=== PATIENT | male | born 1940 ===

== ENCOUNTER 2017-07-23 07:26 | Day surgery (SDC) | payer MEDICARE, OTHER ==
--- NOTE | 2017-07-15 11:23 | Pre-Procedure Note/Attestation ---
Pre-Procedure Note/Attestation Complete Prior to Procedure Planned Procedure: right Procedure Narrative: 1. CATARACT EXTRACTION WITH PHACO AND PC IOL IMPLANTATION, RIGHT EYE. 2.MALYUGIN RING INSERTION, RIGHT EYE FOR FLOPPY IRIS SYNDROME. 3.COMPLEX CATARACT , RIGHT EYE Indications for Procedure Pre-Operative Diagnosis: 1. CATARACT ,RIGHT EYE. 2. FLOPPY IRIS SYNDROME,RIGHT EYE 3. COMPLEX CATARACT , RIGHT EYE. Attestation I attest that I discussed the nature of the procedure; its benefits; risks and complications; and alternatives (and the risks and benefits of such alternatives ), prior to the procedure, with the patient (or the patient's legal client account representative). I attest that, if there was a reasonable possibility of needing a blood transfusion, the patient (or the patient's legal client account representative) was given the [facility] standardized written summary, pursuant to the Nicholas [place] Blood Safety Act ([place] Health and Safety Code # 1645, as amended). I attest that I re-evaluated the patient just prior to the surgery and that there has been no change in the patient's H&P, except as documented below: CORNELIO ANDRES Jul 15, 2017 11:23
[2017-07-23] VITALS (8 sets, daily range): BP systolic 137–159; BP diastolic 58–73
[~2017-07-23] VITALS: Ht 180 cm; Wt 63.5 kg
[~2017-07-23 07:26] MED LIST: Akten 3.5% 1ml Btl ONE; Akten 3.5% 1ml Btl RIGHT EYE SCH; BSS 15ml BTL ONE; BSS 500ml btl ONE; Carbachol 0.01% Op Soln 1.5ml vial ONE; Dexamethasone 4mg/ml vial ONE; Diclofenac Sod 0.1% Op Soln ONE; Diclofenac Sod 0.1% Op Soln RIGHT EYE SCH; EPINEPHrine 1mg/1ml Amp ONE; Lidocaine 1% MPF 10mg/ml 5ml ONE; Phenylephrine 10% Opth Soln 5ml ONE; Phenylephrine 10% Opth Soln 5ml RIGHT EYE SCH; Povidone-Iodine 5% opth solution ONE; Sodium Hyaluronate 10 mg/ml 0.85ml ONE; Tropicamide 1% Opth Soln ONE; Tropicamide 1% Opth Soln RIGHT EYE SCH; Vigamox Opth Soln ONE; Vigamox Opth Soln RIGHT EYE SCH; acetaZOLAMIDE 125mg tab ORAL ONE
[2017-07-23] MEDS ORDERED: FINASTERIDE5 MG ORAL (07:29)
[2017-07-23] MEDS ORDERED: TAMSULOSIN HCL0.4 MG ORAL (07:30)
[2017-07-23] MEDS ORDERED: METFORMIN HCL500 M5 PO (07:30)
[2017-07-23] MEDS ORDERED: Akten 3.5% 1ml Btl ONE (07:31)
[2017-07-23] MEDS ORDERED: Tropicamide 1% Opth Soln ONE (07:31)
[2017-07-23] MEDS ORDERED: Diclofenac Sod 0.1% Op Soln ONE (07:31)
[2017-07-23] MEDS ORDERED: Phenylephrine 10% Opth Soln 5ml ONE (07:31)
[2017-07-23] MEDS ORDERED: Vigamox Opth Soln ONE (07:31)
[2017-07-23] MEDS: Tropicamide 1% Opth Soln RIGHT EYE SCH ×3 (07:56→08:07)
[2017-07-23] MEDS: Vigamox Opth Soln RIGHT EYE SCH ×3 (07:56→08:07)
[2017-07-23] MEDS: Diclofenac Sod 0.1% Op Soln RIGHT EYE SCH ×3 (07:56→08:08)
[2017-07-23] MEDS: Akten 3.5% 1ml Btl RIGHT EYE SCH ×3 (07:57→08:08)
[2017-07-23] MEDS: Phenylephrine 10% Opth Soln 5ml RIGHT EYE SCH ×3 (07:57→08:07)
[2017-07-23] MEDS ORDERED: LR 1000ml ONE (08:00)
[2017-07-23] MEDS ORDERED: Midazolam 2mg/2ml Inj ONE (08:00)
[2017-07-23] MEDS ORDERED: Sterile Water Irrig 1000ml IRRIG ONE (08:00)
[2017-07-23] MEDS ORDERED: NS Irrig 1000ml ONE (08:00)
[2017-07-23] MEDS ORDERED: LR 1000ml 1,000 ML IVLG SCH (08:40)
[2017-07-23] MEDS ORDERED: LR 1000ml 1,000 ML IV SCH (08:45)
[2017-07-23] MEDS ORDERED: fentaNYL 100 mcg/2 mL IV PRN (08:45)
--- NOTE | 2017-07-23 08:45 | Anethesia Preoperative Eval ---
Anesthesia Pre-op PMH/ROS General Date of Evaluation: Jul 23, 2017 Time of Evaluation: 08:11 Anesthesiologist: Sridhar ASA Score: ASA 3 Mallampati Score Class I : Soft palate, uvula, fauces, pillars visible Class II: Soft palate, uvula, fauces visible Class III: Soft palate, base of uvula visible Class IV: Only hard plate visible Mallampati Classification: Class II Surgeon: Jaret Diagnosis: Cataract right eye Surgical Procedure: Extraction of cataract with IOL right eye Family History: no anesthesia problems Allergies: Coded Allergies: No Known Allergies (Unverified , 07/12/17) Medications: see eMAR Past Medical History Cardiovascular: Denies: HTN, CAD, [place], valve dz, arrhythmia, other Pulmonary: Denies: asthma, COPD, DOV, other Gastrointestinal/Genitourinary: Reports: other - BPH, Denies: GERD, CRI, ESRD Neurologic/Psychiatric: Denies: dementia, CVA, depression/anxiety, TIA, other Endocrine: Reports: DM, Denies: hypothyroidism, steroids, other HEENT: Reports: cataract (R), Denies: cataract (L), glaucoma, [place] (L), [place] (R), other Hematology/Immune: Denies: anemia, DVT, bleeding disorder, other Musculoskeletal/Integumentary: Denies: OA, RA, DJD, DDD, edema, other PMH Narrative: DM, BPH PSxH Narrative: Retina surgery left eye Anesthesia Pre-op Phys. Exam Physician Exam Last Vital Signs Date Time Temp Pulse Resp B/P (MAP) Pulse Ox O2 Delivery O2 Flow Rate FiO2 07/23/17 08:11 97.2 52 19 138/58 99 Room Air Constitutional: NAD Neurologic: CN 2-12 intact Cardiovascular: RRR, no M/R/G Respiratory: CTA Gastrointestinal: S/NT/ND Airway Exam Mallampati Score: Class II MO: full ROM: full Dentures: upper, lower Anesthesia Pre-op A/P Risk Assessment & Plan Assessment: Diabetic male for cataract extraction Plan: MAC Status Change Before Surgery: No Pre-Antibiotics Drug: None PREET DAWN M.D. Jul 23, 2017 08:45
--- NOTE | 2017-07-23 08:46 | Immediate Post-Op Evaluation ---
Immediate Post-Op Evalulation Immediate Post-Op Evalulation Procedure: Extraction of cataract with IOL right eye Date of Evaluation: Jul 23, 2017 Time of Evaluation: 09:15 IV Fluids: 400 Blood Pressure Systolic: 153 Blood Pressure Diastolic: 57 Pulse Rate: 57 Respiratory Rate: 16 O2 Sat by Pulse Oximetry: 99 Temperature (Fahrenheit): 97.1 Pain Score (1-10): 0 Nausea: No Vomiting: No Complications No complication Patient Status: awake, patent, none Hydration Status: adequate Drug: None PREET DAWN M.D. Jul 23, 2017 08:46
--- NOTE | 2017-07-23 09:13 | Discharge Summary ---
Discharge Summary Discharge Summary Discharge Summary DATE OF ADMISSION: 07/23/2017 DATE OF DISCHARGE: 07/23/2017 REASON FOR HOSPITALIZATION:1- Complex cataract,right eye. 2- floppy iris syndrome, coplex cataract, rigt eye. SURGERY PERFORMED: 1- Cataract extraction with phaco and PC IOL implantation, right eye. 2- Malyugin ring insertion for the floppy iris syndrome treatment, right eye CONDITION IN THE HOSPITAL:The patient tolerated the surgery without complications. DISCHARGE CONDITION: The patient was stable at discharge. DISCHARGE MEDICATIONS: 1. Vigamox eye drops one drop q.i.d, right eye. 2. Prednisolone one drop q.i.d, right eye 3. Acular one drop q4h, right eye POSTOPERATIVE ORDERS: The patient has to rest at home. No bending, No lifting, No watching Television tonight. POSTOPERATIVE FOLLOW UP: The patient will be followed in my office tomorrow morning at 7 o'clock. CORNELIO ANDRES Jul 23, 2017 09:13
--- NOTE | 2017-07-23 09:13 | 48 Hour Post Anesthesia Eval ---
Post Anesthesia Evaluation Procedure: Extraction of cataract with IOL right eye Date of Evaluation: Jul 23, 2017 Time of Evaluation: 09:45 Blood Pressure Systolic: 153 0: 58 Pulse Rate: 56 Respiratory Rate: 18 O2 Sat by Pulse Oximetry: 98 Airway: patent Nausea: No Vomiting: No Pain Intensity: 0 Cardiopulmonary Status: Stable Mental Status/LOC: patient returned to baseline Follow-up Care/Observations: As per surgery Post-Anesthesia Complications: No anesthetic complication Follow-up care needed: N/A PREET DAWN M.D. Jul 23, 2017 09:13
--- NOTE | 2017-07-23 09:17 | Brief Operative Note ---
Immediate Post Operative Note Operative Note Chief Complaint: Blurry vision, difficulty driving and readin, right eye Pre-op Diagnosis: 1. CATARACT ,RIGHT EYE. 2. FLOPPY IRIS SYNDROME,RIGHT EYE 3. COMPLEX CATARACT , RIGHT EYE. Procedure: 1- Cataract extraction with phaco and PC IOL implantation. right eye. 2- Malyugin ring insertion for the treatment floppy iris syndrome and the complex cataract, right eye Post-op Diagnosis: same as pre-op Surgeon: Cornelio Raygoza MD Improvement Spec: None Additional Surgeons: None Anesthesiologist: Dr. Rey Anesthesia: MAC Specimen: none Complications: none Condition: stable Fluids: LR 500ml Estimated Blood Loss: none Drains: none Packing: none Implant(s) used?: Yes - Monofocal PC IOL implanted in the right eye without complications, right eye CORNELIO RAYGOZA Jul 23, 2017 09:17
[2017-07-23] MEDS ORDERED: Dexamethasone 4mg/ml vial ONE (12:32)
[2017-07-23] MEDS ORDERED: Lidocaine 1% MPF 10mg/ml 5ml ONE (12:32)
[2017-07-23] MEDS ORDERED: BSS 500ml btl ONE (12:32)
[2017-07-23] MEDS ORDERED: BSS 15ml BTL ONE (12:33)
[2017-07-23] MEDS ORDERED: EPINEPHrine 1mg/1ml Amp ONE (12:33)
[2017-07-23] MEDS ORDERED: Sodium Hyaluronate 10 mg/ml 0.85ml ONE (12:33)
[2017-07-23] MEDS ORDERED: Povidone-Iodine 5% opth solution ONE (12:33)
--- NOTE | 2017-07-24 09:16 | Operative Note - Dictated ---
DATE OF OPERATION: 07/23/2017 FACILITY: [facility]. SURGEON: Aditya Raygoza M.D. THREADER: None. ANESTHESIOLOGIST: Nicholas Waller M.D. ANESTHESIA: Monitored anesthesia care (MAC) x2. PREOPERATIVE DIAGNOSES: 1. Cataract, right eye. 2. Floppy iris syndrome. 3. Complex cataract. POSTOPERATIVE DIAGNOSES: 1. Cataract, right eye. 2. Floppy iris syndrome. 3. Complex cataract. SURGERY PERFORMED: 1. Cataract extraction with phacoemulsification and posterior chamber intraocular lens implantation in the right eye. 2. Insertion of Malyugin ring for treatment of floppy iris syndrome. INDICATION FOR SURGERY: The patient is a 77-year-old gentleman with history of hypertension, benign prostatic hypertrophy, and diabetes mellitus. He is taking medications including Macrobid, Flomax, and finasteride. He does not have any allergy to medications, but he is a heavy cigarette smoker. The patient is complaining of blurred vision in the right eye. On examination of the right eye, the cornea is clear. Anterior chamber is clean and quiet. Pupillary reflex is normal. The patient has a floppy iris syndrome because he is using lens. There is no RAPD. There is 4+ nuclear sclerosis and 2+ cortical cataract in his eye. Funduscopy shows normal macula, normal optic disc, and periphery retina is flat. To improve his vision in the right eye, the cataract has to be removed and posterior chamber intraocular lens has to be implanted. INFORMED CONSENT: The nature of the surgery, risks, benefits, alternatives, and potential complications were explained all in detail to the patient. The potential complications including, but not limited to bleeding, infection, posterior capsular rupture, lens subluxation, flat anterior chamber, iris prolapse, uveitis, corneal edema, macular edema, endophthalmitis, retinal detachment, loss of vision, and even loss of the eye were all explained in detail to the patient. The patient voiced understanding and accepted all the complications. The alternatives including accommodating lenses, multifocal lenses, toric lens, and conventional cataract surgery with limbal relaxing incision (LRI) for treatment of astigmatism were all explained in detail to the patient. The patient voiced understanding. The patient elected to have only conventional cataract surgery in the right eye. Then, he signed the consent form, which is in the chart. DESCRIPTION OF SURGERY AND FINDINGS: Following that, the patient was taken to the operation room in a stable condition. Lidocaine gel, Akten 3.5% were applied to the conjunctiva of the right eye. IV sedation was given by the anesthesiologist, Dr. Waller. After adequate anesthesia and sedation had been achieved, the right eye was prepped and draped in a sterile fashion for intraocular surgery. Following that, a speculum was placed in the right eye. Following that, using a Super Sharp knife, a clear corneal side port was created. Following that, 1% lidocaine without preservative (MPF) was injected into the anterior chamber. Viscoelastic agent, Healon was injected into the anterior chamber. Following that, a clear corneal temporal keratotomy was performed using a 2.8 mm keratome. Following that, the viscoelastic agent was injected into the anterior chamber again. Following that, a Malyugin ring was inserted into the anterior chamber. Following that, the coil of the Malyugin ring was engaged with sphincter. A sudheer-shaped space was created for safe phacoemulsification. Following that, a Vision Blue was injected under the viscoelastic agent to stain the anterior capsule of the lens. Following that, a clear viscoelastic agent was injected into the anterior chamber again. Under the viscoelastic agent, an anterior capsulotomy was performed in the fashion of capsulorrhexis beautifully. Following that, all viscoelastic agent was removed from the anterior chamber. Following that, with balanced salt solution, hydrodissection and hydrodelineation was performed and the nucleus was freed. Following that, the clear viscoelastic agent was injected into the anterior chamber to protect endothelium of the cornea. Following that, using a phacoemulsification machine in the fashion of horizontal chop, the nucleus was removed in toto. Following that, the cortical material was removed from the capsular bag using irrigation aspiration unit. Following that, the capsular bag was polished. Following that, the capsular bag was filled with viscoelastic agent, Healon. Following that, a +21 diopter [id number] foldable PCIOL with serial number [id number] was inserted into the capsular bag. Using a Sinskey hook, the lens was manipulated within the proper position. Following that, the viscoelastic agent was removed from the anterior and posterior part of the lens. Following that, the anterior chamber was filled with balanced salt solution. Following that, the wound was hydrated with balanced salt solution and the wound was checked for leakage and there was no leakage. The patient tolerated the surgery without complications. At the end of the surgery, the eye was patched with a clear sterile fenestrated shield and Vigamox eye drops were applied to the conjunctivae of the right eye. Following that, the patient was transferred to the recovery room. In the recovery room, 125 mg Diamox was given by mouth stat. Postoperative orders and directions were given to the patient. The patient will be discharged home upon stabilization. The patient will be followed in my office tomorrow morning at 7 o'clock. Aditya Raygoza M.D. DR: Wendy JOB#: [id number] CC:
== END 2017-07-23 12:20 | disposition home or self-care (01) ==
LOC: SUR 07:26
DX: H25.11 Age-related nuclear cataract, right eye (principal); H25.011 Cortical age-related cataract, right eye; H21.81 Floppy iris syndrome; F17.210 Nicotine dependence, cigarettes, uncomplicated; N40.0 Benign prostatic hyperplasia without lower urinary tract symptoms; E11.9 Type 2 diabetes mellitus without complications; Z79.84 Long term (current) use of oral hypoglycemic drugs
CPT/HCPCS: 66982; 82962; J0171; J1100; J2250; J7120; V2632; 94003; 94150

== ENCOUNTER 2017-07-30 05:40 | Day surgery (SDC) | payer MEDICARE, OTHER ==
--- NOTE | 2017-07-25 14:03 | Pre-Procedure Note/Attestation ---
Pre-Procedure Note/Attestation Complete Prior to Procedure Planned Procedure: left Procedure Narrative: 1. CATARACT EXTRACTION WITH PHACO AND PC IOL IMPLANTATION, LEFT EYE. 2.MALYUGIN RING INSERTION, LEFT EYE FOR FLOPPY IRIS SYNDROME. 3.COMPLEX CATARACT , LEFT EYE Indications for Procedure Pre-Operative Diagnosis: 1. CATARACT ,LEFT EYE. 2. FLOPPY IRIS SYNDROME,LEFT EYE 3. COMPLEX CATARACT , LEFT EYE. Attestation I attest that I discussed the nature of the procedure; its benefits; risks and complications; and alternatives (and the risks and benefits of such alternatives ), prior to the procedure, with the patient (or the patient's legal renewals representative). I attest that, if there was a reasonable possibility of needing a blood transfusion, the patient (or the patient's legal renewals representative) was given the [facility] standardized written summary, pursuant to the [place] Blood Safety Act ([place] Health and Safety Code # 1645, as amended). I attest that I re-evaluated the patient just prior to the surgery and that there has been no change in the patient's H&P, except as documented below: CORNELIO ANDRES Jul 25, 2017 14:03
[~2017-07-30] VITALS: Ht 180 cm; Wt 63.5 kg
[2017-07-30] VITALS (9 sets, daily range): BP systolic 135–154; BP diastolic 57–73
[~2017-07-30 05:40] MED LIST changes: -Akten 3.5% 1ml Btl ONE; -Akten 3.5% 1ml Btl RIGHT EYE SCH; -BSS 15ml BTL ONE; -BSS 500ml btl ONE; -Carbachol 0.01% Op Soln 1.5ml vial ONE; -Dexamethasone 4mg/ml vial ONE; -Diclofenac Sod 0.1% Op Soln ONE; -Diclofenac Sod 0.1% Op Soln RIGHT EYE SCH; -EPINEPHrine 1mg/1ml Amp ONE; +FINASTERIDE5 MG ORAL; -Lidocaine 1% MPF 10mg/ml 5ml ONE; +METFORMIN HCL500 M5 PO; -Phenylephrine 10% Opth Soln 5ml ONE; -Phenylephrine 10% Opth Soln 5ml RIGHT EYE SCH; -Povidone-Iodine 5% opth solution ONE; -Sodium Hyaluronate 10 mg/ml 0.85ml ONE; +TAMSULOSIN HCL0.4 MG ORAL; -Tropicamide 1% Opth Soln ONE; -Tropicamide 1% Opth Soln RIGHT EYE SCH; -Vigamox Opth Soln ONE; -Vigamox Opth Soln RIGHT EYE SCH; -acetaZOLAMIDE 125mg tab ORAL ONE
[2017-07-30] MEDS ORDERED: Tropicamide 1% Opth Soln ONE (05:46)
[2017-07-30] MEDS ORDERED: Akten 3.5% 1ml Btl ONE (05:46)
[2017-07-30] MEDS ORDERED: Phenylephrine 10% Opth Soln 5ml ONE (05:46)
[2017-07-30] MEDS ORDERED: Ketorolac Tromethamine Opth Soln ONE (05:46)
[2017-07-30] MEDS ORDERED: acetaZOLAMIDE 125mg tab ORAL ONE (06:00)
[2017-07-30] MEDS: Ketorolac Tromethamine Opth Soln LEFT EYE SCH ×3 (06:08→06:51)
[2017-07-30] MEDS: Akten 3.5% 1ml Btl LEFT EYE SCH ×3 (06:09→06:51)
[2017-07-30] MEDS: Tropicamide 1% Opth Soln LEFT EYE SCH ×3 (06:09→06:51)
[2017-07-30] MEDS: Phenylephrine 10% Opth Soln 5ml LEFT EYE SCH ×3 (06:09→06:51)
[2017-07-30] MEDS ORDERED: Vigamox Opth Soln ONE (06:32)
[2017-07-30] MEDS: Vigamox Opth Soln LEFT EYE SCH ×3 (06:35→06:50)
[2017-07-30] MEDS ORDERED: LR 1000ml 1,000 ML IVLG SCH (07:37)
--- NOTE | 2017-07-30 07:37 | Anethesia Preoperative Eval ---
Anesthesia Pre-op PMH/ROS General Date of Evaluation: Jul 30, 2017 Anesthesiologist: Vinay ASA Score: ASA 2 Mallampati Score Class I : Soft palate, uvula, fauces, pillars visible Class II: Soft palate, uvula, fauces visible Class III: Soft palate, base of uvula visible Class IV: Only hard plate visible Mallampati Classification: Class II Surgeon: Tino Diagnosis: Left cataract Surgical Procedure: Left cataract extraction with IOL Anesthesia History: none Family History: no anesthesia problems Allergies: Coded Allergies: No Known Allergies (Unverified , 07/12/17) Medications: see eMAR Past Medical History Cardiovascular: Denies: HTN, CAD, [place], valve dz, arrhythmia, other Pulmonary: Denies: asthma, COPD, DOV, other Gastrointestinal/Genitourinary: Reports: other - BPH, Denies: GERD, CRI, ESRD Neurologic/Psychiatric: Denies: dementia, CVA, depression/anxiety, TIA, other Endocrine: Reports: DM, Denies: hypothyroidism, steroids, other HEENT: Denies: cataract (L), cataract (R), glaucoma, [place] (L), JENA (R), other Hematology/Immune: Denies: anemia, DVT, bleeding disorder, other Musculoskeletal/Integumentary: Denies: OA, RA, DJD, DDD, edema, other PSxH Narrative: Right cataract, left vitrectomy Anesthesia Pre-op Phys. Exam Physician Exam Last Vital Signs Date Time Temp Pulse Resp B/P (MAP) Pulse Ox O2 Delivery O2 Flow Rate FiO2 07/30/17 06:19 97.3 47 18 152/57 100 Room Air Constitutional: NAD Cardiovascular: RRR Respiratory: CTA Airway Exam Mallampati Score: Class II Anesthesia Pre-op A/P Labs see chart Studies Pre-op Studies: EKG - sr Risk Assessment & Plan Assessment: ASA II Plan: MAC Status Change Before Surgery: No Pre-Antibiotics Drug: N/A GABI GRAY M.D. Jul 30, 2017 07:37
[2017-07-30] MEDS ORDERED: DiphenhydrAMINE 50mg/ml Inj IVP PRN (07:45)
[2017-07-30] MEDS ORDERED: Lidocaine 1% MPF 10mg/ml 5ml ONE ×2 (08:00→10:34)
[2017-07-30] MEDS ORDERED: NS Irrig 1000ml ONE (08:00)
[2017-07-30] MEDS ORDERED: LR 1000ml ONE (08:00)
[2017-07-30] MEDS ORDERED: fentaNYL 100 mcg/2 mL IV ONE (08:00)
[2017-07-30] MEDS ORDERED: Sterile Water Irrig 1000ml IRRIG ONE (08:00)
--- NOTE | 2017-07-30 08:11 | Immediate Post-Op Evaluation ---
Immediate Post-Op Evalulation Immediate Post-Op Evalulation Procedure: Left cataract extraction with IOL Date of Evaluation: Jul 30, 2017 Time of Evaluation: 09:09 IV Fluids: 300 Blood Products: 0 Estimated Blood Loss: 0 Urinary Output: 0 Blood Pressure Systolic: 152 Blood Pressure Diastolic: 63 Pulse Rate: 45 Respiratory Rate: 16 O2 Sat by Pulse Oximetry: 98 Temperature (Fahrenheit): 97.7 Pain Score (1-10): 0 Nausea: No Vomiting: No Complications 0 Patient Status: awake, reacts, patent, none Hydration Status: adequate Drug: N/A GABI GRAY M.D. Jul 30, 2017 08:11
--- NOTE | 2017-07-30 08:12 | 48 Hour Post Anesthesia Eval ---
Post Anesthesia Evaluation Procedure: Left cataract extraction with IOL Date of Evaluation: Jul 30, 2017 Airway: patent Nausea: No Vomiting: No Pain Intensity: 0 Hydration Status: adequate Cardiopulmonary Status: at baseline Mental Status/LOC: patient returned to baseline Post-Anesthesia Complications: 0 Follow-up care needed: ready to discharge GABI GRAY M.D. Jul 30, 2017 08:12
--- NOTE | 2017-07-30 09:10 | Discharge Summary ---
Discharge Summary Discharge Summary Discharge Summary DATE OF ADMISSION: 07/30/2017 DATE OF DISCHARGE: 07/30/2017 REASON FOR HOSPITALIZATION: cataract, left eye SURGERY PERFORMED: Cataract extraction with phaco and PC IOL implantation, left eye CONDITION IN THE HOSPITAL:The patient tolerated the surgery without complications. DISCHARGE CONDITION: The patient was stable at discharge. DISCHARGE MEDICATIONS: 1. Vigamox eye drops one drop q.i.d, left eye 2. Prednisolone one drop q.i.d, left eye 3. Acular one drop q4h, left eye POSTOPERATIVE ORDERS: The patient has to rest at home. No bending, No lifting, No watching Television tonight. POSTOPERATIVE FOLLOW UP: The patient will be followed in my office tomorrow morning at 7 o'clock. CORNELIO ANDRES Jul 30, 2017 09:10
--- NOTE | 2017-07-30 09:14 | Brief Operative Note ---
Immediate Post Operative Note Operative Note Chief Complaint: Blurry vision, left eye. difficulty driving and reading. Pre-op Diagnosis: 1. CATARACT ,LEFT EYE. 2. FLOPPY IRIS SYNDROME,LEFT EYE 3. COMPLEX CATARACT , LEFT EYE. Procedure: 1- Cataract extraction with phaco and PC IOL implantation, left eye 2- Malyugin ring insertion , left eye 3- Complex cataract, left eye Post-op Diagnosis: same as pre-op Surgeon: Cornelio Raygoza MD. Site Safety Coordinator: None Additional Surgeons: None Anesthesiologist: Dr. Agrawal Anesthesia: MAC Specimen: none Complications: none Condition: stable Fluids: LR 500 cc Estimated Blood Loss: none Drains: none Packing: None Implant(s) used?: Yes - Monofocal PC IOL implanted in the left eye without complication CORNELIO RAYGOZA Jul 30, 2017 09:14
[2017-07-30] MEDS ORDERED: BSS 500ml btl ONE (10:34)
[2017-07-30] MEDS ORDERED: Dexamethasone 4mg/ml vial ONE (10:35)
[2017-07-30] MEDS ORDERED: Sodium Hyaluronate 10 mg/ml 0.85ml ONE (10:35)
[2017-07-30] MEDS ORDERED: BSS 15ml BTL ONE (10:35)
[2017-07-30] MEDS ORDERED: EPINEPHrine 1mg/1ml Amp ONE (10:35)
[2017-07-30] MEDS ORDERED: Povidone-Iodine 5% opth solution ONE (10:35)
--- NOTE | 2017-07-30 20:15 | Operative Note - Dictated ---
DATE OF OPERATION: 07/30/2017 FACILITY: [facility]. SURGEON: Aditya Raygoza M.D. PASSENGER CAR CONDUCTOR: None. ANESTHESIOLOGIST: Dr. Mclean. ANESTHESIA: Monitored anesthesia care (MAC). PREOPERATIVE DIAGNOSES: 1. Cataract in the left eye. 2. Floppy iris syndrome. 3. Complex cataract. POSTOPERATIVE DIAGNOSES: 1. Cataract in the left eye. 2. Floppy iris syndrome. 3. Complex cataract. SURGERY PERFORMED: 1. Cataract extraction with phacoemulsification and posterior chamber intraocular lens implantation in the left eye. 2. Insertion of Malyugin ring for treatment of floppy iris syndrome. INDICATION FOR SURGERY: The patient is a 77-year-old gentleman with history of hypertension, benign prostatic hypertrophy, and diabetes mellitus. He is taking medications including Macrobid, Flomax, and finasteride. He does not have any allergy to medications, but he is a heavy cigarette smoker. The patient is complaining of blurred vision in the left eye. He has had cataract surgery in the right eye with very good result and he is happy with the result. On examination of the left eye, the cornea is clear. Anterior chamber is clean and quiet. Pupillary reflex is normal. The patient had a floppy iris syndrome because of using Flomax. There is no RAPD. There is 4+ nuclear sclerosis and 2+ cortical cataract in this eye. Funduscopy shows normal macula, normal optic disc, and periphery retina is flat. 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 To improve his vision in the left eye, the cataract has to be removed and posterior chamber intraocular lens has to be implanted. INFORMED CONSENT: The nature of the surgery, risks, benefits, alternatives, and potential complications were explained in detail to the patient. The potential complications including, but not limited to bleeding, infection, posterior capsular rupture, lens subluxation, flat anterior chamber, iris prolapse, uveitis, corneal edema, macular edema, endophthalmitis, retinal detachment, loss of vision, and even loss of the eye were all explained in detail to the patient. The patient voiced understanding and accepted all the complications. The alternatives including accommodating lenses, multifocal lens, toric lens, and conventional cataract surgery with limbal relaxing incision (LRI) for treatment of astigmatism were all explained in detail to the patient. The patient voiced understanding. The patient elected to have only conventional cataract surgery in the left eye. Then, he signed the consent form, which is in the chart. DESCRIPTION OF SURGERY AND FINDINGS: Following that, the patient was taken to the operating room in a stable condition. Lidocaine gel, Akten 3.5% were applied to the conjunctiva of the left eye. IV sedation was given by the anesthesiologist, Dr. Mclean. After adequate anesthesia and sedation had been achieved, the left eye was prepped and draped in a sterile fashion for intraocular surgery. Following that, a speculum was placed in the left eye. Following that, using a Super Sharp knife, a clear corneal side port was created. Following that, 1% lidocaine without preservative (MPF) was injected into the anterior chamber. The viscoelastic agent, Healon was injected into the anterior chamber. Following that, a clear corneal temporal keratotomy was performed using a 2.8 mm keratome. Following that, the viscoelastic agent was injected into the anterior chamber again. Following that, a Malyugin ring was inserted into the anterior chamber. Following that, the coils of the Malyugin ring were engaged with sphincter of the pupil. A sudheer-shaped space was created for safe phacoemulsification. Following that, a Vision Blue was injected under the viscoelastic agent to stain the anterior capsule of the lens. Following that, a clear viscoelastic agent, Healon was injected into the anterior chamber again. Under the viscoelastic agent, an anterior capsulotomy was performed in the fashion of capsulorrhexis beautifully. Following that, all viscoelastic agent was removed from the anterior chamber. Following that, with balanced salt solution, hydrodissection and hydrodelineation was performed and the nucleus was freed. Following that, the clear viscoelastic agent was injected into the anterior chamber to protect the endothelium of the cornea. Following that, using the phacoemulsification machine in the fashion of horizontal chop, the nucleus was removed in toto. Following that, the cortical material was removed from the capsular bag using the irrigation aspiration unit. Following that, the capsular bag was polished. Following that, the capsular bag was filled with viscoelastic agent Healon. Following that, a +18.5 diopter [id number] foldable PC IOL with serial number [id number] was inserted into the capsular bag. Using a Sinskey hook, the lens was manipulated within the proper position. Following that, the viscoelastic agent was removed from the anterior and posterior part of the lens. Following that, the anterior chamber was filled with balanced salt solution. Following that, the wounds were hydrated with balanced salt solution and the wound was checked for leakage and there was no leakage. The patient tolerated the surgery without complications. At the end of the surgery, the eye was patched with a clear sterile fenestrated shield and Vigamox eye drops were applied to the conjunctiva of the left eye. Following that, the patient was transferred to the recovery room. In the recovery room, 125 mg Diamox was given by mouth stat. Postoperative orders and directions were given to the patient. The patient will be discharged home upon stabilization. The patient will be followed in my office tomorrow morning at 6:45 a.m. Aditya Raygoza M.D. DR: FELIX JOB#: [id number] CC:
== END 2017-07-30 11:05 | disposition home or self-care (01) ==
LOC: SUR 05:40
DX: H25.12 Age-related nuclear cataract, left eye (principal); H25.012 Cortical age-related cataract, left eye; H21.81 Floppy iris syndrome; E11.9 Type 2 diabetes mellitus without complications; N40.0 Benign prostatic hyperplasia without lower urinary tract symptoms; I10 Essential (primary) hypertension; R00.1 Bradycardia, unspecified; F17.210 Nicotine dependence, cigarettes, uncomplicated
CPT/HCPCS: 82962; 94003; 94150